=== PATIENT | male | born 1965 | race Caucasian/White ===

== ENCOUNTER 2020-05-24 20:37 | Emergency (ER) | payer OTHER ==
[~2020-05-24] VITALS: Ht 177.8 cm; Wt 99.8 kg
== END 2020-05-24 23:33 | disposition home or self-care (01) ==
LOC: ER 20:37
DX: R11.10 Vomiting, unspecified (principal)

== ENCOUNTER → 2020-07-01 | Emergency (ER) | payer OTHER | END | disposition left against medical advice (07) | LOC: ER 21:38 | DX: Z53.20 Procedure and treatment not carried out because of patient's decision for unspecified reasons (principal) ==

== ENCOUNTER 2020-08-27 02:45 | Inpatient (IN) | payer OTHER ==
[~2020-08-27] VITALS: Ht 177.8 cm; Wt 95.3 kg
[2020-08-27] MEDS ORDERED: ADULT ASPIRIN81 MG (03:00)
--- NOTE | 2020-08-27 03:00 | NUR ---
PTE SE RECIBE POR DOLOR DE PECHO DENNYS REFIERE PTE.
--- NOTE | 2020-08-27 03:33 | NUR ---
SE LE ORIENTA A PTE SOBRE TRATAMIENTO A SEGUIR, EL REFIERE ENTENDER. SE LE COLECTA MUESTRAS, SE CANALIZA Y SE ADMINISTRA MEDICAMENTO MERRITT ORDEN MEDICA UTILIZANDO MEDIDAS ASEPTICAS. PENDIENTE VASILIY X
--- NOTE | 2020-08-27 07:31 | NUR ---
SE RECIBE PACIENTE EN CAMA #17 AREA DE CHEST PAIN. SE OFRECE ADONIS PARA EVALUAR CONDICION Y ORIENTAR DE CONTINUIDAD DE TRATAMIENTO. PACIENTE REFIERE ENTENDER. PACIENTE ALERTA Y ORIENTADO POR ELENA, CONECTADO A MONITOR CARDIACO CON SATURO- METRO. CANALIZADO EN BRAZO IZQ ANGIO #18 AREA VICENTE DE EDEMA Y/O ERITEMA BAJANDO TRIDIL A 3 MLS/HR. SE MIDEN Y DOCUMENTAN S/V. BARANDAS ELEVADAS POR NAGY SEGURIDAD. SE MONITOREA POR CAMBIOS SIGNIFICATIVOS.
--- NOTE | 2020-08-27 09:01 | NUR ---
PACIENTE REFIERE ESTAR ANCIOSO Y TENER FOBIA A LUGARES CERRADOS POR LO CUAL SE SIENTE INCOMODO. SE NOTIFICA A DR PADILLA EL CUAL ORDENA MEDICAMNTO. SE ORIENTA PACIENTE DE MEDICAMENTO Y SE ADMINISTRA CON MEDIDAS ASEPTICAS CORRES- PONDIENTES. SE MONITOREA POR CAMBIOS. BARANDAS ELEVADAS POR NAGY SEGURIDAD.
== END 2020-08-31 11:35 | disposition designated cancer center or children's hospital (05) | DRG 282 ==
LOC: ER 02:45 → MEDJ 12:01 → SEC-K 12:01 → MEDJ 13:22
PROVIDERS: ADMIT Internal Medicine; ATTEND Internal Medicine
PROC: 4A12X4Z Monitoring of Cardiac Electrical Activity, External Approach (ICD-10-PCS; principal; 2020-08-27)
PROC: B24BZZZ Ultrasonography of Heart with Aorta (ICD-10-PCS; 2020-08-27)
DX: I21.4 Non-ST elevation (NSTEMI) myocardial infarction (principal); I10 Essential (primary) hypertension; Z20.822 Contact with and (suspected) exposure to COVID-19; Z72.0 Tobacco use; E66.8 Other obesity; Z68.30 Body mass index [BMI] 30.0-30.9, adult

== ENCOUNTER 2020-10-22 18:24 | Inpatient (IN) | payer OTHER ==
[~2020-10-22] VITALS: Ht 177.8 cm; Wt 98.9 kg
[~2020-10-22 18:24] MED LIST: ADULT ASPIRIN81 MG
[2020-10-22] MEDS ORDERED: CARVEDILOL ER10 MG PO (21:36)
[2020-10-22] MEDS ORDERED: ATORVASTATIN CA80 MG PO (21:37)
[2020-10-22] MEDS ORDERED: FAMOTIDINE20 MG PO (21:37)
[2020-10-22] MEDS ORDERED: BRILINTA90 MG PO (21:38)
[2020-10-22] MEDS ORDERED: ADALAT CC30 MG PO (21:38)
== END 2020-10-26 12:38 | disposition designated cancer center or children's hospital (05) | DRG 311 ==
LOC: ER 18:24 → MEDJ 10-23 14:10 → SEC-K 10-23 16:06 → SURH 10-24 17:29
PROVIDERS: ADMIT Internal Medicine; ATTEND Internal Medicine
DX: I24.9 Acute ischemic heart disease, unspecified (principal); I25.10 Atherosclerotic heart disease of native coronary artery without angina pectoris; I10 Essential (primary) hypertension; Z95.5 Presence of coronary angioplasty implant and graft; Z72.0 Tobacco use; F41.9 Anxiety disorder, unspecified

== ENCOUNTER 2020-11-04 10:54 | Emergency (ER) | payer OTHER ==
[~2020-11-04] VITALS: Ht 177.8 cm; Wt 98.9 kg
[~2020-11-04 10:54] MED LIST changes: +ADALAT CC30 MG PO; +ATORVASTATIN CA80 MG PO; +BRILINTA90 MG PO; +CARVEDILOL ER10 MG PO; +FAMOTIDINE20 MG PO
== END 2020-11-04 19:20 | disposition home or self-care (01) ==
LOC: ER 10:54 → CPU-OBS 12:15 → ER 12:15
DX: R07.89 Other chest pain (principal); Z20.822 Contact with and (suspected) exposure to COVID-19
CPT/HCPCS: 93005; G0378; G0379

== ENCOUNTER 2021-03-10 13:53 | Emergency (ER) | payer OTHER ==
[~2021-03-10] VITALS: Ht 177.8 cm; Wt 99.8 kg
[2021-03-10] MEDS ORDERED: LIPITOR40 M1 PO (14:34)
== END 2021-03-10 22:01 | disposition home or self-care (01) ==
LOC: ER 13:53
DX: R07.89 Other chest pain (principal); Z11.52 Encounter for screening for COVID-19

== ENCOUNTER 2021-08-09 22:40 | Emergency (ER) | payer OTHER ==
[~2021-08-09] VITALS: Ht 177.8 cm; Wt 99.8 kg
[~2021-08-09 22:40] MED LIST changes: +LIPITOR40 M1 PO
== END 2021-08-10 10:00 | disposition left against medical advice (07) ==
LOC: ER 22:40
DX: R07.89 Other chest pain (principal); I10 Essential (primary) hypertension; I25.2 Old myocardial infarction; I51.9 Heart disease, unspecified; E78.00 Pure hypercholesterolemia, unspecified

== ENCOUNTER 2022-03-24 09:05 | Outpatient (CLI) | payer OTHER | END 2022-03-24 09:11 | disposition home or self-care (01) | LOC: TOM 09:05 | PROVIDERS: ATTEND General Practice | DX: R97.0 Elevated carcinoembryonic antigen [CEA] (principal) ==

== ENCOUNTER 2023-09-13 17:31 | Emergency (ER) | payer OTHER ==
[~2023-09-13] VITALS: Ht 177.8 cm; Wt 108.9 kg
[2023-09-13] MEDS ORDERED: NIFEDIPINE20 MG PO (17:42)
[2023-09-13] MEDS ORDERED: METFORMIN HCL500 M3 PO (17:42)
[2023-09-13] MEDS ORDERED: PLAVIX75 MG PO (17:42)
[2023-09-13 18:12] LABS: HEMATOCRIT 43.4 % (39.0-48.0); MEAN CORPUSCULAR HEMOGLOBIN 29.1 pg (27.00-32.0); MEAN CORPUSCULAR HGB CONC 34.6 g/dl (32.0-36.0); PLATELET COUNT 221 K/uL (150-450); RED BLOOD COUNT 5.16 M/uL (4.00-6.00); RED CELL DISTRIBUTION WIDTH 14.1 % (11.5-14.5)
[2023-09-13 18:52] LABS: ABG PH 7.449 (7.35-7.45)
[2023-09-13 18:53] LABS: ABG pCO2 36.4 mmHg (35-45); BICARBONATE 24.7 mmol/l (23-25); SaO2 96.8 %; Tco2 25.8 mmol/l; allen test SATISFACTORY; o2 21 %; puncture site RADIAL LEFT
== END 2023-09-13 20:14 | disposition home or self-care (01) ==
LOC: ER 17:31
PROVIDERS: Emergency Medicine
DX: U07.1 COVID-19 (principal)

== ENCOUNTER 2024-09-27 18:01 | Inpatient (IN) | payer OTHER ==
[~2024-09-27] VITALS: Ht 177.8 cm; Wt 108.9 kg
[~2024-09-27 18:01] MED LIST changes: +METFORMIN HCL500 M3 PO; +NIFEDIPINE20 MG PO; +PLAVIX75 MG PO
[2024-09-27] MEDS ORDERED: CARVEDILOL3.125 M1 PO (19:23)
[2024-09-27] MEDS ORDERED: TICAGRELOR 90 MG TABLET PO ONE (19:45)
[2024-09-27 20:25] LABS: BASO % 0.7 % (0.1-1.2); EOS # 0.28 (0.04-0.54); EOS % 2.9 % (0.7-7.0); LYMPH # 3.34 (1.18-3.74); LYMPH % 34.3 % (19.3-53.1); MEAN PLATELET VOLUME 11.10 fl (9.4-12.4); MONO # 0.86 (0.24-0.82); MONO % 8.8 % (4.7-12.5); NEUT # 5.15 (1.56-6.13); NEUT % 53.0 % (34.0-71.1); RED CELL DISTRIBUTION WIDTH 12.9 % (11.6-14.4)
[2024-09-27 20:48] LABS: INR 1.05
[2024-09-27 21:17] LABS: ALT/SGPT 87.0 U/L (12-78); AST/SGOT 37.0 U/L (15-37); BILIRUBIN TOTAL 0.59 mg/dL (0.3-1.2); BUN CREA RATIO 13.0 (7.0-25.0); CREATININE SERUM 1.21 mg/dL (0.70-1.30); GFR 61.59; GLOBULINA 3.6 G/DL (2.4-3.5); GLUCOSE FASTING 107.0 mg/dL (65-100); LDH 226.0 U/L (87-241); PHOSPHOKINASE CREATININE 240.0 U/L (39-308)
[2024-09-27 21:24] LABS: OSMOLALITY SERUM 283.0 MOSM/KG (275-295)
[2024-09-27 21:29] LABS: COVID-19 AG NEGATIVE (NEGATIVE)
[2024-09-27] MEDS ORDERED: 0.9 % SODIUM CHLORIDE 1,000 ML IV SCH (22:30)
[2024-09-27] MEDS ORDERED: ATORVASTATIN CALCIUM 40 MG TABLET PO SCH (22:30)
[2024-09-27] MEDS ORDERED: ASPIRIN 325 MG TABLET.EC PO ONE (22:30)
[2024-09-27] MEDS ORDERED: ENOXAPARIN SODIUM 100 MG/ML SYRINGE SUBCUTANEO SCH (22:31)
[2024-09-27] MEDS ORDERED: FAMOTIDINE/PF 20 MG in 0.9 % SODIUM CHLORIDE 8 ML IV PUSH SCH (22:31)
[2024-09-27] MEDS ORDERED: NITROGLYCERIN IN 5 % DEXTROSE 250 ML IV SCH (22:45)
[2024-09-27] MEDS ORDERED: ACETAMINOPHEN 500 MG GEL..CAP PO PRN (22:45)
[2024-09-27] MEDS ORDERED: FAMOTIDINE/PF 20 MG/2 ML VIAL ONE (23:41)
[2024-09-27] MEDS ORDERED: NITROGLYCERIN IN 5 % DEXTROSE 50 MG/250 ML BOTTLE IV ONE (23:42)
[2024-09-28] VITALS (9 sets, daily range): BP systolic 119–144; BP diastolic 69–93; O2SAT 96–100
[2024-09-28] MEDS ORDERED: TICAGRELOR 90 MG TABLET PO SCH (05:00)
[2024-09-28] MEDS ORDERED: NITROGLYCERIN IN 5 % DEXTROSE 250 ML IV SCH (07:30)
[2024-09-28 08:28] LABS: CHOL HDL RATIO 4.1 (0-5.0); HDL 29.0 mg/dl (40-60); LDL 38.0 mg/dl (0-130); TSH 2.6 uIU/mL (0.358-3.74); VLDL 52.0 (0-39)
[2024-09-28] MEDS ORDERED: METOPROLOL SUCCINATE 25 MG TAB.SR.24H PO SCH (09:00)
[2024-09-28] MEDS ORDERED: ASPIRIN 81 MG TAB.CHEW PO SCH (09:00)
[2024-09-29] VITALS (14 sets, daily range): BP systolic 103–160; BP diastolic 65–90; O2SAT 95–99
[2024-09-29] MEDS ORDERED: FAMOTIDINE/PF 20 MG/2 ML VIAL IV PUSH STA (18:33)
[2024-09-30 00:04] VITALS: O2SAT 97
[2024-09-30 00:39] VITALS: BP 144/77; O2SAT 96
[2024-09-30 02:53] VITALS: O2SAT 98
[2024-09-30 07:11] LABS: BASO % 0.7 % (0.1-1.2); EOS # 0.35 (0.04-0.54); EOS % 5.0 % (0.7-7.0); LYMPH # 2.90 (1.18-3.74); LYMPH % 41.0 % (19.3-53.1); MEAN PLATELET VOLUME 11.80 fl (9.4-12.4); MONO # 0.66 (0.24-0.82); MONO % 9.3 % (4.7-12.5); NEUT # 3.09 (1.56-6.13); NEUT % 43.7 % (34.0-71.1); RED CELL DISTRIBUTION WIDTH 12.8 % (11.6-14.4)
[2024-09-30 07:34] LABS: BUN CREA RATIO 13.0 (7.0-25.0); CREATININE SERUM 1.12 mg/dL (0.70-1.30); GFR 67.34; GLUCOSE FASTING 99.0 mg/dL (65-100); OSMOLALITY SERUM 286.0 MOSM/KG (275-295)
[2024-09-30 08:25] VITALS: BP 116/71
== END 2024-09-30 12:28 | disposition designated cancer center or children's hospital (05) | DRG 282 ==
LOC: ER 18:01 → ICU-2 23:47 → MEDI 09-29 11:00 → O/R 09-29 13:28 → MEDI 09-29 13:32
PROVIDERS: Emergency Medicine; General Practice; ADMIT Student in an Organized Health Care Education/Training Program; ATTEND Student in an Organized Health Care Education/Training Program
PROC: B24BZZZ Ultrasonography of Heart with Aorta (ICD-10-PCS; principal; 2024-09-27)
PROC: 4A12X4Z Monitoring of Cardiac Electrical Activity, External Approach (ICD-10-PCS; 2024-09-29)
DX: I21.4 Non-ST elevation (NSTEMI) myocardial infarction (principal); I25.10 Atherosclerotic heart disease of native coronary artery without angina pectoris; I11.9 Hypertensive heart disease without heart failure; E78.5 Hyperlipidemia, unspecified; R73.03 Prediabetes; F12.90 Cannabis use, unspecified, uncomplicated